=== PATIENT | female | born 1990 | race Caucasian/White ===

== ENCOUNTER 2019-11-05 06:13 | Inpatient (IN) | payer BC ==
[2019-11-05] MEDS ORDERED: Sodium Chloride 0.9% 2.5 ML Syringe FLUSH PRN (06:19)
[2019-11-05] MEDS ORDERED: Sodium Chloride 0.9% 10 ML SDV IV PRN (06:19)
[2019-11-05] MEDS ORDERED: Sodium Chloride 0.9% 10 ML Syringe FLUSH PRN (06:19)
[2019-11-05] MEDS ORDERED: Citric Acid/Sodium Citrate Solution 30 ML Cup PO ONE (06:19)
[2019-11-05] MEDS ORDERED: Oxytocin/0.9 % Sodium Chloride 30 UNIT/500 ML BAG IV SCH ×2 (06:30→06:45)
[2019-11-05] MEDS ORDERED: Tranexamic Acid 1,000 MG in Sodium Chloride 0.9% 100 ML IV PRN ×2 (06:34→09:32)
[2019-11-05] MEDS ORDERED: Butorphanol 1 MG/ML SDV IVPUSH PRN (06:34)
[2019-11-05] MEDS ORDERED: Lidocaine 1% 50 ML MDV INJECT PRN (06:34)
[2019-11-05] MEDS ORDERED: Carboprost Tromethamine 250 MCG/1 ML Amp IM PRN (06:34)
[2019-11-05] MEDS ORDERED: Water For Irrigation,Sterile 1,000 ML Container IRR PRN (06:34)
[2019-11-05] MEDS ORDERED: Methylergonovine 0.2 MG/1 ML Amp IM PRN ×2 (06:34→09:32)
[2019-11-05] MEDS ORDERED: Misoprostol 200 MCG Tab PO PRN (06:34)
[2019-11-05] MEDS ORDERED: Nalbuphine 10 MG/1 ML Vial IVPUSH PRN ×2 (06:34→09:16)
[2019-11-05] MEDS ORDERED: Ondansetron 4 MG/2 ML SDV IVPUSH PRN ×2 (06:34→09:32)
[2019-11-05] MEDS: Lactated Ringers 1,000 ML IV SCH ×3 (06:42→08:36)
[2019-11-05] MEDS ORDERED: Morphine PF 10 MG/10 ML SDV ONE (07:56)
[2019-11-05] MEDS ORDERED: ceFAZolin 1 GM Vial ONE (07:56)
[2019-11-05] MEDS ORDERED: ePHEDrine 50 MG/ML SDV ONE (07:56)
[2019-11-05] MEDS ORDERED: Ondansetron 4 MG/2 ML SDV ONE (07:56)
[2019-11-05] MEDS ORDERED: Oxytocin 10 Units/1 ML SDV ONE (07:56)
[2019-11-05] MEDS ORDERED: Sodium Chloride 0.9% 20 ML ONE ×2 (07:56→07:57)
[2019-11-05] MEDS ORDERED: ceFAZolin 1 GM in Premix Bag 1 BAG IV ONE (08:13)
--- NOTE | 2019-11-05 08:18 | PCM.PREANE ---
Preanesthetic Assessment - Anesthesia/Transfusion/Family Hx Anesthesia History: Prior Anesthesia Without Reaction Family History of Anesthesia Reaction: No Transfusion History: Prior Transfusion Without Reaction - Review of Systems General: No Symptoms Pulmonary: No Symptoms Cardiovascular: No Symptoms Gastrointestinal: No Symptoms Neurological: No Symptoms Other: Reports: None - Physical Assessment Height: 5 ft 1 in Weight: 58.967 kg ASA Class: 2 Mental Status: Alert & Oriented x3 Airway Class: Mallampati = 2 Dentition: Reports: Normal Dentition Thyro-Mental Finger Breadths: 3 Mouth Opening Finger Breadths: 3 ROM/Head Extension: Full Lungs: Clear to Auscultation, Normal Respiratory Effort Cardiovascular: Regular Rate, Regular Rhythm - Lab Values: Laboratory Last Values WBC 9.26 K/uL (4.0-11.0) 11/05/19 06:50 RBC 3.99 M/uL (4.30-5.90) L 11/05/19 06:50 Hgb 11.2 g/dL (12.0-16.0) L 11/05/19 06:50 Hct 35.2 % (36.0-46.0) L 11/05/19 06:50 MCV 88.2 fL (80.0-98.0) 11/05/19 06:50 MCH 28.1 pg (27.0-32.0) 11/05/19 06:50 MCHC 31.8 g/dL (31.0-37.0) 11/05/19 06:50 Plt Count 159 K/uL (150-400) 11/05/19 06:50 Nucleated RBC % 0.0 /100WBC 11/05/19 06:50 Nucleated RBCs # 0 K/uL 11/05/19 06:50 Blood Type O POSITIVE 11/05/19 06:50 Antibody Screen NEGATIVE 11/05/19 06:50 - Allergies Allergies/Adverse Reactions: Allergies Allergy/AdvReac Type Severity Reaction Status Date / Time Dairy Products Allergy Hives Verified 10/31/19 10:21 - Acknowledgements Anesthesia Type Planned: General Anesthesia, Spinal (Duramorph) Pt an Appropriate Candidate for the Planned Anesthesia: Yes Alternatives and Risks of Anesthesia Discussed w Pt/Guardian: Yes Pt/Guardian Understands and Agrees with Anesthesia Plan: Yes PreAnesthesia Questionnaire - Past Health History Medical/Surgical History: Denies Medical/Surgical History HEENT History: Reports: Other (See Below) Other HEENT History: wears glasses, has top dental flipper Cardiovascular History: Reports: None Respiratory History: Reports: None Gastrointestinal History: Reports: None Genitourinary History: Reports: None RECYCLE DRIVER History: Reports: , Spontaneous : 3 Para: 1 LMP (Approximate): Musculoskeletal History: Reports: None Neurological History: Reports: Migraines Psychiatric History: Reports: None Endocrine/Metabolic History: Reports: Diabetes, Gestational, Other (See Below) Other Endocrine/Metabolic History: hx of gdm with previous Hematologic History: Reports: Anemia, B12 Deficiency, Blood Transfusion(s), Iron Deficiency, Other (See Below) Other Hematologic History: iron transfusion Immunologic History: Reports: None Oncologic (Cancer) History: Reports: None Dermatologic History: Reports: None - Infectious Disease History Infectious Disease History: Reports: None - Past Surgical History HEENT Surgical History: Reports: None Female Surgical History: Reports: Section Endocrine Surgical History: Reports: None Neurological Surgical History: Reports: None - SUBSTANCE USE Smoking Status *Q: Former Smoker Tobacco Use Within Last Twelve Months: No - HOME MEDS Home Medications: Home Meds Cyclobenzaprine HCl 1 tab PO ASDIRECTED PRN 10/31/19 [History] Pnv No.95/Ferrous Fum/Folic AC [ Vitamin Tablet] 1 tab PO DAILY [History] Cyanocobalamin (Vitamin B12) [Vitamin B12] 1,000 mcg PO WEEKLY 11/05/19 [History ] hydrOXYzine pamoate [Hydroxyzine Pamoate] 1 tab PO DAILY 11/05/19 [History] - CURRENT (IN HOUSE) MEDS Current Meds: Current Medications Butorphanol Tartrate (Stadol) 1 mg IVPUSH Q1H PRN PRN Reason: Pain Carboprost Tromethamine (Hemabate Ds) 250 mcg IM ASDIRECTED PRN PRN Reason: Post Hemorrhage Lactated Ringer's (Ringers, Lactated) 1,000 mls @ 500 mls/hr IV BOLUS [facility] Last Admin: 11/05/19 07:27 Dose: 999 mls/hr Oxytocin/Sodium Chloride (Oxytocin 30 Unit/500 Ml-Ns) 30 unit in 500 mls @ 250 mls/hr IV TITRATE LUCIANA Oxytocin/Sodium Chloride (Oxytocin 30 Unit/500 Ml-Ns) 30 unit in 500 mls @ 999 mls/hr IV TITRATE LUCIANA Tranexamic Acid 1,000 mg/ (Sodium Chloride) 110 mls @ 660 mls/hr IV ONETIME PRN PRN Reason: Bleeding Cefazolin Sodium/Dextrose 1 gm (/ Premix) 50 mls @ 100 mls/hr IV ONETIME ONE Stop: 11/05/19 08:42 Lidocaine HCl (Xylocaine 1%) 50 ml INJECT ONETIME PRN PRN Reason: Laceration repair Methylergonovine Maleate (Methergine) 0.2 mg IM ASDIRECTED PRN PRN Reason: Post Hemorrhage Misoprostol (Cytotec) 200 mcg PO ONETIME PRN PRN Reason: Post Hemorrhage Nalbuphine HCl (Nubain) 10 mg IVPUSH Q1H PRN PRN Reason: Pain (severe 7-10) Ondansetron HCl (Zofran) 4 mg IVPUSH Q4H PRN PRN Reason: Nausea/Vomiting Sodium Chloride (Saline Flush) 10 ml FLUSH ASDIRECTED PRN PRN Reason: Keep Vein Open Sodium Chloride (Saline Flush) 2.5 ml FLUSH ASDIRECTED PRN PRN Reason: Keep Vein Open Sodium Chloride (Normal Saline) 10 ml IV ASDIRECTED PRN PRN Reason: IV Use Sterile Water (Sterile Water For Irrigation) 1,000 ml IRR ASDIRECTED PRN PRN Reason: delivery Discontinued Medications Cefazolin Sodium (Ancef) Confirm Administered Dose 2 gm .ROUTE .STK-MED ONE Stop: 11/05/19 07:57 Citric Acid/Sodium Citrate (Bicitra Solution) 30 ml PO ONETIME ONE Stop: 11/05/19 06:20 Ephedrine Sulfate (Ephedrine Sulfate) Confirm Administered Dose 50 mg .ROUTE .STK-MED ONE Stop: 11/05/19 07:57 Sodium Chloride (Normal Saline) Confirm Administered Dose 20 mls @ as directed .ROUTE .STK-MED ONE Stop: 11/05/19 07:57 Sodium Chloride (Normal Saline) Confirm Administered Dose 20 mls @ as directed .ROUTE .STK-MED ONE Stop: 11/05/19 07:58 Morphine Sulfate (Duramorph Pf) Confirm Administered Dose 10 mg .ROUTE .STK-MED ONE Stop: 11/05/19 07:57 Ondansetron HCl (Zofran) Confirm Administered Dose 4 mg .ROUTE .STK-MED ONE Stop: 11/05/19 07:57 Oxytocin (Pitocin) Confirm Administered Dose 30 unit .ROUTE .STK-MED ONE Stop: 11/05/19 07:57
[2019-11-05] MEDS ORDERED: Citric Acid/Sodium Citrate Solution 30 ML Cup ONE (08:33)
[2019-11-05] MEDS ORDERED: Phenylephrine/Normal Saline 100 MCG/ML 10 ML Syringe ONE (08:50)
[2019-11-05] MEDS ORDERED: Naloxone 0.4 MG/ML Syringe IVPUSH PRN (09:16)
[2019-11-05] MEDS ORDERED: diphenhydrAMINE 50 MG/ML SDV IVPUSH PRN ×2 (09:16→09:32)
[2019-11-05] MEDS ORDERED: Octyl 2-Cyanoacrylate 1 Tube ONE (09:19)
--- NOTE | 2019-11-05 09:30 | PCM.OPNOTE ---
- General Post-Op/Procedure Note Date of Surgery/Procedure: 11/05/19 Operative Procedure(s): repeat low transverse . Findings: Liveborn female, 08/06 weight 3190 grams. Normal pelvis Pre Op Diagnosis: 39 weeks, previous anemia. Post-Op Diagnosis: Same Anesthesia Technique: Spinal Primary Surgeon: Tootie Ashton Anesthesia Provider: Sharad Mccabe Pathology: none Fluid Replacement, Intraop: 500 EBL in mLs: 500 Complications: None Known Condition: Good
[2019-11-05] MEDS ORDERED: Bisacodyl 10 MG Supp RECTAL PRN (09:32)
[2019-11-05] MEDS ORDERED: Misoprostol 200 MCG Tab RECTAL PRN (09:32)
[2019-11-05] MEDS ORDERED: Ibuprofen 800 MG Tab PO PRN (09:32)
[2019-11-05] MEDS ORDERED: Oxytocin 10 Units/1 ML SDV IM PRN (09:32)
[2019-11-05] MEDS ORDERED: Lanolin 100% Cream 7 GM Tube TOP PRN (09:32)
[2019-11-05] MEDS ORDERED: Acetaminophen/oxyCODONE 325-5 MG Tab PO PRN (09:32)
[2019-11-05] MEDS ORDERED: Lactated Ringers 1,000 ML IV SCH (09:45)
[2019-11-05] MEDS: Ketorolac 30 MG/ML SDV IVPUSH SCH ×3 (09:56→21:49)
--- NOTE | 2019-11-05 10:16 | PCM.POSTAN ---
POST ANESTHESIA ASSESSMENT - MENTAL STATUS Mental Status: Alert - VITAL SIGNS Vital Signs: Last Vital Signs Temp 36.8 C 11/05/19 09:33 Pulse 78 11/05/19 10:03 Resp 11 L 11/05/19 10:03 BP 116/64 11/05/19 10:03 Pulse Ox 99 11/05/19 10:03 - RESPIRATORY Respiratory Status: Respiratory Rate WNL - CARDIOVASCULAR CV Status: Pulse Rate WNL - GASTROINTESTINAL GI Status: No Symptoms - POST OP HYDRATION Hydration Status: Adequate & Stable
--- NOTE | 2019-11-05 16:00 | OR ---
SURGEON: Tootie Ashton M.D. DATE OF PROCEDURE: 11/05/2019 PREOPERATIVE DIAGNOSES: A 39-week intrauterine , prior delivery, desires repeat. POSTOPERATIVE DIAGNOSES: A 39-week intrauterine , prior delivery, desires repeat. PROCEDURE: Repeat low-transverse section. PRIMARY SURGEON: Tootie Ashton M.D. ANESTHESIA: Spinal. ESTIMATED BLOOD LOSS: 500 mL. FLUIDS: 500 mL of crystalloid. FINDINGS: Liveborn female, score 9 and 9, weighing 3190 g. Normal-appearing uterus, tubes, and ovaries. COMPLICATIONS: None known. DISPOSITION: Stable to recovery. BRIEF HISTORY: This is a 28-year-old female, G2, P1. She presents at 39 weeks' gestation for a repeat section. Her has been complicated by severe iron deficiency anemia. She has received iron infusions. Her hemoglobin was running in the range of 8 and now is 11.2. She has been offered and declined vaginal trial of labor and she desires a repeat delivery with risks discussed including bleeding; infection; injury to bowel, bladder, blood vessels, or other organs; risk of thromboembolic event; and risk of anesthesia. Understanding all these risks, she does desire to proceed. DESCRIPTION OF PROCEDURE: With the patient in left tilt position and under adequate spinal analgesia, the abdomen was prepped with chlorhexidine and draped in the usual fashion for abdominal surgery. SCDs were in place. Lambert catheter had been placed. She received a gram of Ancef IV and an appropriate time-out was held. The abdomen was appropriately prepped and draped and the testing was performed to confirm adequate analgesia. The prior cicatrix was excised and a transverse curvilinear incision was made through the subcutaneous tissue. The fascia was scored transversely in the midline. The fascial incision was extended laterally using curved Pollard scissors. The fascia was elevated from the underlying rectus muscle using sharp and blunt dissection. The rectus muscles were bluntly in the midline. A finger was used to enter the peritoneal cavity. This incision was extended using sharp and blunt dissection. The Tahir O retractor was placed. The visceroperitoneum over the lower uterine segment was incised to develop an adequate bladder flap. A transverse curvilinear incision was made over the lower uterine segment using a scalpel. The incision was extended with blunt dissection. With fundal pressure, the head was delivered via the uterine incision. Amniotic membranes were then ruptured. Clear fluid was noted. The double nuchal cord was reduced. The remainder of the fetus body was delivered without any difficulty. The was a liveborn female, score 9 and 9, weight is 3190 g. After the cord had ceased to pulsate, it was doubly clamped and cut and the was handed to the nurse in attendance at delivery. Cord blood was collected for cord ABGs as well as routine cord blood sampling. Pitocin was initiated after delivery of the infant to assist with delivery of the placenta, which was delivered . The uterus was cleaned with dry laparotomy tape. The cervix was opened with ring forceps. The uterine incision was closed with a running lock suture of 0 Polysorb. The posterior cul-de-sac and pericolic gutters were cleaned with a laparotomy tape. Tubes and ovaries were inspected and were normal. The uterine incision was inspected and was hemostatic after it had been closed with a running lock suture of 0 Polysorb followed by an imbricating layer of 0 Polysorb and an additional [id number] suture in the midline. The Tahir 0 retractor was then removed. The uterine incision was again inspected and was hemostatic. The rectus muscle and peritoneum were loosely approximated in the midline using a running mattress suture of 0 Polysorb. The posterior aspect of the fascia was inspected and was hemostatic. The fascial incision was closed with a running suture of 0 Polysorb. Subcutaneous tissue was irrigated. Any areas of bleeding that were noted were cauterized. The skin was closed with a running subcuticular suture of 3-0 Monocryl followed by Dermabond. Final sponge, needle, and instrument counts were reported as correct. There were no noted complications. Mother and baby are in recovery in good condition. MARLEE / ZAID /[id number] ZANE
[2019-11-05] MEDS: Docusate Sodium 100 MG Cap PO SCH (21:49)
[2019-11-06] MEDS: Ketorolac 30 MG/ML SDV IVPUSH SCH ×2 (03:49→09:37)
--- NOTE | 2019-11-06 08:01 | PCM48HPAN ---
Post Anesthesia Note - EVALUATION WITHIN 48HRS OF ANESTHETIC Vital Signs in Normal Range: Yes Patient Participated in Evaluation: Yes Respiratory Function Stable: Yes Airway Patent: Yes Cardiovascular Function Stable: Yes Hydration Status Stable: Yes Pain Control Satisfactory: Yes Nausea and Vomiting Control Satisfactory: Yes Mental Status Recovered: Yes Vital Signs: Last Vital Signs Temp 98.6 F 11/06/19 03:47 Pulse 89 11/06/19 07:00 Resp 14 11/06/19 07:00 BP 112/58 L 11/06/19 07:00 Pulse Ox 91 L 11/06/19 07:00
--- NOTE | 2019-11-06 08:39 | PCM.PNPP ---
- General Info Date of Service: 11/06/19 Functional Status: Reports: Pain Controlled, Tolerating Diet, Ambulating, Urinating - Review of Systems General: Reports: No Symptoms HEENT: Reports: No Symptoms Pulmonary: Reports: No Symptoms Cardiovascular: Reports: No Symptoms Gastrointestinal: Reports: No Symptoms Genitourinary: Reports: No Symptoms Musculoskeletal: Reports: No Symptoms Skin: Reports: No Symptoms Neurological: Reports: No Symptoms Psychiatric: Reports: No Symptoms - Patient Data Vital Signs - Most Recent: Last Vital Signs Temp 37.0 C 11/06/19 03:47 Pulse 120 H 11/06/19 08:00 Resp 18 11/06/19 08:00 BP 112/58 L 11/06/19 07:00 Pulse Ox 93 L 11/06/19 08:00 Weight - Most Recent: 58.967 kg I&O - Last 24 Hours: Intake & Output 11/05/19 11/06/19 11/06/19 22:59 06:59 14:59 Intake Total 640 Output Total 510 2250 700 Balance 130 -2250 -700 Lab Results - Last 24 Hours: Laboratory Results - last 24 hr 11/05/19 11/06/19 Range/Units 09:01 06:15 Hgb 10.1 L (12.0-16.0) g/dL Hct 31.3 L (36.0-46.0) % Cord ABG pH 7.283 (7.18-7.38) Cord ABG Base Excess -3 (-10--2) Cord VBG pH 7.340 (7.25-7.45) Cord VBG Base Excess -3 (-10--2) Med Orders - Current: Current Medications Bisacodyl (Dulcolax) 10 mg RECTAL ONETIME PRN PRN Reason: Constipation Diphenhydramine HCl (Benadryl) 25 mg IVPUSH Q4H PRN PRN Reason: Itching Stop: 11/06/19 09:17 Diphenhydramine HCl (Benadryl) 25 mg IVPUSH Q6H PRN PRN Reason: Itching or Nausea Docusate Sodium (Colace) 100 mg PO BID LUCIANA Last Admin: 11/05/19 21:49 Dose: 100 mg Emollient Ointment (Lansinoh Hpa) 0 gm TOP ASDIRECTED PRN PRN Reason: Sore Nipples Lactated Ringer's (Ringers, Lactated) 1,000 mls @ 125 mls/hr IV ASDIRECTED [facility] Last Admin: 11/05/19 11:17 Dose: 125 mls/hr Tranexamic Acid 1,000 mg/ (Sodium Chloride) 110 mls @ 660 mls/hr IV ONETIME PRN PRN Reason: Bleeding Ibuprofen (Motrin) 800 mg PO Q8H PRN PRN Reason: mild pain or fever Ketorolac Tromethamine (Toradol) 30 mg IVPUSH Q6H [facility] Stop: 11/06/19 09:46 Last Admin: 11/06/19 03:49 Dose: 30 mg Methylergonovine Maleate (Methergine) 0.2 mg IM ONETIME PRN PRN Reason: Excessive Vaginal Bleeding Misoprostol (Cytotec) 1,000 mcg RECTAL ONETIME PRN PRN Reason: excessive bleeding Nalbuphine HCl (Nubain) 5 mg IVPUSH Q3H PRN PRN Reason: Pruritis Stop: 11/06/19 09:17 Naloxone HCl (Narcan) 0.1 mg IVPUSH ONETIME PRN PRN Reason: Respiratory Depression Stop: 11/06/19 09:17 Ondansetron HCl (Zofran) 4 mg IVPUSH Q4H PRN PRN Reason: Nausea/Vomiting Oxycodone/Acetaminophen (Percocet 325-5 Mg) 1 tab PO Q4H PRN PRN Reason: Pain (moderate 4-6) Oxycodone/Acetaminophen (Percocet 325-5 Mg) 2 tab PO Q4H PRN PRN Reason: Pain (moderate 4-6) Oxytocin (Pitocin) 10 unit IM ASDIRECTED PRN PRN Reason: Excessive Vaginal Bleeding Discontinued Medications Butorphanol Tartrate (Stadol) 1 mg IVPUSH Q1H PRN PRN Reason: Pain Carboprost Tromethamine (Hemabate Ds) 250 mcg IM ASDIRECTED PRN PRN Reason: Post Hemorrhage Cefazolin Sodium (Ancef) Confirm Administered Dose 2 gm .ROUTE .STK-MED ONE Stop: 11/05/19 07:57 Citric Acid/Sodium Citrate (Bicitra Solution) 30 ml PO ONETIME ONE Stop: 11/05/19 06:20 Last Admin: 11/05/19 08:35 Dose: 30 ml Citric Acid/Sodium Citrate (Bicitra Solution) Confirm Administered Dose 30 ml .ROUTE .STK-MED ONE Stop: 11/05/19 08:34 Last Admin: 11/05/19 19:42 Dose: Not Given Ephedrine Sulfate (Ephedrine Sulfate) Confirm Administered Dose 50 mg .ROUTE .STK-MED ONE Stop: 11/05/19 07:57 Lactated Ringer's (Ringers, Lactated) 1,000 mls @ 500 mls/hr IV BOLUS LUCIANA Last Admin: 11/05/19 08:36 Dose: 999 mls/hr Oxytocin/Sodium Chloride (Oxytocin 30 Unit/500 Ml-Ns) 30 unit in 500 mls @ 250 mls/hr IV TITRATE LUCIANA Oxytocin/Sodium Chloride (Oxytocin 30 Unit/500 Ml-Ns) 30 unit in 500 mls @ 999 mls/hr IV TITRATE LUCIANA Tranexamic Acid 1,000 mg/ (Sodium Chloride) 110 mls @ 660 mls/hr IV ONETIME PRN PRN Reason: Bleeding Sodium Chloride (Normal Saline) Confirm Administered Dose 20 mls @ as directed .ROUTE .STK-MED ONE Stop: 11/05/19 07:57 Sodium Chloride (Normal Saline) Confirm Administered Dose 20 mls @ as directed .ROUTE .STK-MED ONE Stop: 11/05/19 07:58 Cefazolin Sodium/Dextrose 1 gm (/ Premix) 50 mls @ 100 mls/hr IV ONETIME ONE Stop: 11/05/19 08:42 Last Admin: 11/05/19 19:42 Dose: Not Given Lidocaine HCl (Xylocaine 1%) 50 ml INJECT ONETIME PRN PRN Reason: Laceration repair Methylergonovine Maleate (Methergine) 0.2 mg IM ASDIRECTED PRN PRN Reason: Post Hemorrhage Misoprostol (Cytotec) 200 mcg PO ONETIME PRN PRN Reason: Post Hemorrhage Morphine Sulfate (Duramorph Pf) Confirm Administered Dose 10 mg .ROUTE .STK-MED ONE Stop: 11/05/19 07:57 Nalbuphine HCl (Nubain) 10 mg IVPUSH Q1H PRN PRN Reason: Pain (severe 7-10) Octyl Cyanoacrylate (Dermabond Advance) Confirm Administered Dose 1 applic .ROUTE .STK-MED ONE Stop: 11/05/19 09:20 Last Admin: 11/05/19 19:42 Dose: Not Given Ondansetron HCl (Zofran) 4 mg IVPUSH Q4H PRN PRN Reason: Nausea/Vomiting Ondansetron HCl (Zofran) Confirm Administered Dose 4 mg .ROUTE .STK-MED ONE Stop: 11/05/19 07:57 Oxytocin (Pitocin) Confirm Administered Dose 30 unit .ROUTE .STK-MED ONE Stop: 11/05/19 07:57 Phenylephrine HCl (Phenylephrine In Ns 100 Mcg/Ml) Confirm Administered Dose 1 mg .ROUTE .STK-MED ONE Stop: 11/05/19 08:51 Sodium Chloride (Saline Flush) 10 ml FLUSH ASDIRECTED PRN PRN Reason: Keep Vein Open Sodium Chloride (Saline Flush) 2.5 ml FLUSH ASDIRECTED PRN PRN Reason: Keep Vein Open Sodium Chloride (Normal Saline) 10 ml IV ASDIRECTED PRN PRN Reason: IV Use Sterile Water (Sterile Water For Irrigation) 1,000 ml IRR ASDIRECTED PRN PRN Reason: delivery - Infant Interaction Infant Disposition, : in Room with Family Infant Interaction: Holding Infant Infant Feeding: Bottle Fed Support Person: Significant Other - Recovery Exam Fundal Tone: Firm Fundal Level: 1 Fingerbreadths Below Umbilicus Fundal Placement: Left Lochia Amount: Scant Lochia Color: Rubra/Red Perineum Description: Intact, Minimal Bruising/Swelling Episiotomy/Laceration: None Bladder Status: Indwelling Catheter in Place Urinary Elimination: Indwelling Catheter - Exam General: Alert, Oriented HEENT: Pupils Equal Neck: Supple Lungs: Clear to Auscultation, Normal Respiratory Effort Cardiovascular: Regular Rate, Regular Rhythm GI/Abdominal Exam: Normal Bowel Sounds, Non-Tender, No Distention Extremities: Normal Inspection, Non-Tender, No Pedal Edema Skin: Warm, Dry, Intact Wound/Incisions: Healing Well Neurological: No New Focal Deficit Psy/Mental Status: Alert, Normal Affect, Normal Mood - Problem List & Annotations (1) delivery delivered SNOMED Code(s): 958975300 Code(s): O82 - ENCOUNTER FOR DELIVERY WITHOUT INDICATION Status: Acute Current Visit: No - Problem List Review Problem List Initiated/Reviewed/Updated: Yes - My Orders Last 24 Hours: My Active Orders 11/05/19 09:32 Patient Status [ADT] Routine Ambulate [RC] PER UNIT ROUTINE Antiembolic Devices [RC] PER UNIT ROUTINE Communication Order [RC] PER UNIT ROUTINE Communication Order [RC] PER UNIT ROUTINE Communication Order [RC] Per Unit Routine May Shower [RC] ASDIRECTED RT Incentive Spirometry [RC] Q2HWA Vital Signs [RC] PER UNIT ROUTINE Acetaminophen/oxyCODONE [Percocet 325-5 MG] 1 tab PO Q4H PRN Acetaminophen/oxyCODONE [Percocet 325-5 MG] 2 tab PO Q4H PRN Bisacodyl [Dulcolax] 10 mg RECTAL ONETIME PRN Ibuprofen [Motrin] 800 mg PO Q8H PRN Lanolin [Lansinoh HPA] See Dose Instructions TOP ASDIRECTED PRN Methylergonovine [Methergine] 0.2 mg IM ONETIME PRN Ondansetron [Zofran] 4 mg IVPUSH Q4H PRN Oxytocin [Pitocin] 10 unit IM ASDIRECTED PRN Tranexamic Acid [Cyklokapron] 1,000 mg Sodium Chloride 0.9% [Normal Saline] 100 ml IV ONETIME diphenhydrAMINE [Benadryl] 25 mg IVPUSH Q6H PRN miSOPROStoL [Cytotec] 1,000 mcg RECTAL ONETIME PRN Abdominal Binder [OM.PC] Urgent Assess Lochia [WOMSER] Per Unit Routine Assess Uterine Involution [WOMSER] Per Unit Routine Breast Pump [WOMSER] Per Unit Routine Peripheral IV Discontinue [OM.PC] Routine Sequential Compression Device [OM.PC] Per Unit Routine Resuscitation Status Routine 11/05/19 09:33 Intake and Output [RC] Q12H Notify Provider Intake and Out [RC] ASDIRECTED Notify Provider Vital Signs [RC] ASDIRECTED 11/05/19 09:45 Ketorolac [Toradol] 30 mg IVPUSH Q6H Lactated Ringers [Ringers, Lactated] 1,000 ml IV ASDIRECTED 11/05/19 21:00 Docusate Sodium [Colace] 100 mg PO BID 11/05/19 Lunch Regular Diet [DIET] - Assessment Assessment:: POD#1 after repeat low transverse . Stable minimal lochia, tolerating diet. Discussed single episode of tachycardia, she denies any symptoms, will continue to monitor vitals. - Plan Plan:: continue postop care, ambulate, may shower,
[2019-11-06] MEDS: Docusate Sodium 100 MG Cap PO SCH ×2 (09:37→21:04)
[2019-11-06] MEDS: Acetaminophen/oxyCODONE 325-5 MG Tab PO PRN (17:48)
--- NOTE | 2019-11-07 08:32 | PCM.PNPP ---
- General Info Date of Service: 11/07/19 Functional Status: Reports: Pain Controlled, Tolerating Diet, Ambulating, Urinating - Review of Systems General: Reports: No Symptoms HEENT: Reports: No Symptoms Pulmonary: Reports: No Symptoms Cardiovascular: Reports: No Symptoms Gastrointestinal: Reports: No Symptoms Genitourinary: Reports: No Symptoms Musculoskeletal: Reports: No Symptoms Skin: Reports: No Symptoms Neurological: Reports: No Symptoms Psychiatric: Reports: No Symptoms - Patient Data Vital Signs - Most Recent: Last Vital Signs Temp 36.8 C 11/07/19 04:00 Pulse 74 11/07/19 04:00 Resp 14 11/07/19 04:00 BP 110/74 11/07/19 04:00 Pulse Ox 94 L 11/07/19 04:00 Weight - Most Recent: 58.967 kg Lab Results - Last 24 Hours: Laboratory Results - last 24 hr 11/05/19 Range/Units 06:50 RPR Non Reactive (NonRea<1:1) Med Orders - Current: Current Medications Bisacodyl (Dulcolax) 10 mg RECTAL ONETIME PRN PRN Reason: Constipation Diphenhydramine HCl (Benadryl) 25 mg IVPUSH Q6H PRN PRN Reason: Itching or Nausea Docusate Sodium (Colace) 100 mg PO BID [facility] Last Admin: 11/06/19 21:04 Dose: 100 mg Emollient Ointment (Lansinoh Hpa) 0 gm TOP ASDIRECTED PRN PRN Reason: Sore Nipples Lactated Ringer's (Ringers, Lactated) 1,000 mls @ 125 mls/hr IV ASDIRECTED [facility] Last Admin: 11/05/19 11:17 Dose: 125 mls/hr Tranexamic Acid 1,000 mg/ (Sodium Chloride) 110 mls @ 660 mls/hr IV ONETIME PRN PRN Reason: Bleeding Ibuprofen (Motrin) 800 mg PO Q8H PRN PRN Reason: mild pain or fever Last Admin: 11/06/19 16:22 Dose: 800 mg Methylergonovine Maleate (Methergine) 0.2 mg IM ONETIME PRN PRN Reason: Excessive Vaginal Bleeding Misoprostol (Cytotec) 1,000 mcg RECTAL ONETIME PRN PRN Reason: excessive bleeding Ondansetron HCl (Zofran) 4 mg IVPUSH Q4H PRN PRN Reason: Nausea/Vomiting Oxycodone/Acetaminophen (Percocet 325-5 Mg) 1 tab PO Q4H PRN PRN Reason: Pain (moderate 4-6) Last Admin: 11/06/19 17:48 Dose: 1 tab Oxycodone/Acetaminophen (Percocet 325-5 Mg) 2 tab PO Q4H PRN PRN Reason: Pain (moderate 4-6) Oxytocin (Pitocin) 10 unit IM ASDIRECTED PRN PRN Reason: Excessive Vaginal Bleeding Discontinued Medications Butorphanol Tartrate (Stadol) 1 mg IVPUSH Q1H PRN PRN Reason: Pain Carboprost Tromethamine (Hemabate Ds) 250 mcg IM ASDIRECTED PRN PRN Reason: Post Hemorrhage Cefazolin Sodium (Ancef) Confirm Administered Dose 2 gm .ROUTE .STK-MED ONE Stop: 11/05/19 07:57 Citric Acid/Sodium Citrate (Bicitra Solution) 30 ml PO ONETIME ONE Stop: 11/05/19 06:20 Last Admin: 11/05/19 08:35 Dose: 30 ml Citric Acid/Sodium Citrate (Bicitra Solution) Confirm Administered Dose 30 ml .ROUTE .STK-MED ONE Stop: 11/05/19 08:34 Last Admin: 11/05/19 19:42 Dose: Not Given Diphenhydramine HCl (Benadryl) 25 mg IVPUSH Q4H PRN PRN Reason: Itching Stop: 11/06/19 09:17 Ephedrine Sulfate (Ephedrine Sulfate) Confirm Administered Dose 50 mg .ROUTE .STK-MED ONE Stop: 11/05/19 07:57 Lactated Ringer's (Ringers, Lactated) 1,000 mls @ 500 mls/hr IV BOLUS LUCIANA Last Admin: 11/05/19 08:36 Dose: 999 mls/hr Oxytocin/Sodium Chloride (Oxytocin 30 Unit/500 Ml-Ns) 30 unit in 500 mls @ 250 mls/hr IV TITRATE LUCIANA Oxytocin/Sodium Chloride (Oxytocin 30 Unit/500 Ml-Ns) 30 unit in 500 mls @ 999 mls/hr IV TITRATE LUCIANA Tranexamic Acid 1,000 mg/ (Sodium Chloride) 110 mls @ 660 mls/hr IV ONETIME PRN PRN Reason: Bleeding Sodium Chloride (Normal Saline) Confirm Administered Dose 20 mls @ as directed .ROUTE .STK-MED ONE Stop: 11/05/19 07:57 Sodium Chloride (Normal Saline) Confirm Administered Dose 20 mls @ as directed .ROUTE .STK-MED ONE Stop: 11/05/19 07:58 Cefazolin Sodium/Dextrose 1 gm (/ Premix) 50 mls @ 100 mls/hr IV ONETIME ONE Stop: 11/05/19 08:42 Last Admin: 11/05/19 19:42 Dose: Not Given Ketorolac Tromethamine (Toradol) 30 mg IVPUSH Q6H [place]UC[place] Stop: 11/06/19 09:46 Last Admin: 11/06/19 09:37 Dose: 30 mg Lidocaine HCl (Xylocaine 1%) 50 ml INJECT ONETIME PRN PRN Reason: Laceration repair Methylergonovine Maleate (Methergine) 0.2 mg IM ASDIRECTED PRN PRN Reason: Post Hemorrhage Misoprostol (Cytotec) 200 mcg PO ONETIME PRN PRN Reason: Post Hemorrhage Morphine Sulfate (Duramorph Pf) Confirm Administered Dose 10 mg .ROUTE .STK-MED ONE Stop: 11/05/19 07:57 Nalbuphine HCl (Nubain) 10 mg IVPUSH Q1H PRN PRN Reason: Pain (severe 7-10) Nalbuphine HCl (Nubain) 5 mg IVPUSH Q3H PRN PRN Reason: Pruritis Stop: 11/06/19 09:17 Naloxone HCl (Narcan) 0.1 mg IVPUSH ONETIME PRN PRN Reason: Respiratory Depression Stop: 11/06/19 09:17 Octyl Cyanoacrylate (Dermabond Advance) Confirm Administered Dose 1 applic .ROUTE .STK-MED ONE Stop: 11/05/19 09:20 Last Admin: 11/05/19 19:42 Dose: Not Given Ondansetron HCl (Zofran) 4 mg IVPUSH Q4H PRN PRN Reason: Nausea/Vomiting Ondansetron HCl (Zofran) Confirm Administered Dose 4 mg .ROUTE .STK-MED ONE Stop: 11/05/19 07:57 Oxytocin (Pitocin) Confirm Administered Dose 30 unit .ROUTE .STK-MED ONE Stop: 11/05/19 07:57 Phenylephrine HCl (Phenylephrine In Ns 100 Mcg/Ml) Confirm Administered Dose 1 mg .ROUTE .Reeher ONE Stop: 11/05/19 08:51 Sodium Chloride (Saline Flush) 10 ml FLUSH ASDIRECTED PRN PRN Reason: Keep Vein Open Sodium Chloride (Saline Flush) 2.5 ml FLUSH ASDIRECTED PRN PRN Reason: Keep Vein Open Sodium Chloride (Normal Saline) 10 ml IV ASDIRECTED PRN PRN Reason: IV Use Sterile Water (Sterile Water For Irrigation) 1,000 ml IRR ASDIRECTED PRN PRN Reason: delivery - Interaction Infant Disposition, : in Room with Family Infant Interaction: Holding Infant Feeding: Bottle Fed Infant Support Person: Significant Other - Recovery Exam Fundal Tone: Firm Fundal Level: 1 Fingerbreadths Below Umbilicus Fundal Placement: Midline Lochia Amount: Scant Lochia Color: Rubra/Red Perineum Description: Intact, Minimal Bruising/Swelling Episiotomy/Laceration: None Bladder Status: Voiding Urinary Elimination: Indwelling Catheter - Exam General: Alert, Oriented HEENT: Pupils Equal Neck: Supple Lungs: Normal Respiratory Effort GI/Abdominal Exam: Soft, Non-Tender Extremities: Normal Inspection, Non-Tender, No Pedal Edema Skin: Warm, Dry, Intact Wound/Incisions: Healing Well Neurological: No New Focal Deficit Psy/Mental Status: Alert, Normal Affect, Normal Mood - Problem List & Annotations (1) delivery delivered SNOMED Code(s): 168955530 Code(s): O82 - ENCOUNTER FOR DELIVERY WITHOUT INDICATION Status: Acute Current Visit: No - Problem List Review Problem List Initiated/Reviewed/Updated: Yes - My Orders Last 24 Hours: My Active Orders 11/07/19 08:23 Ready for Discharge [RC] PER UNIT ROUTINE - Assessment Assessment:: POD#2 after repeat low transverse . Stable would like to be discharged today. - Plan Plan:: Discharge instructions reviewed.
[2019-11-07] MEDS: Docusate Sodium 100 MG Cap PO SCH (08:40)
[2019-11-07] MEDS: Acetaminophen/oxyCODONE 325-5 MG Tab PO PRN (08:40)
[2019-11-07 09:27] VITALS: BP 124/79; PULSE 86
== END 2019-11-07 11:10 | disposition home or self-care (01) | DRG 540 ==
LOC: MW.OB 06:13
PROVIDERS: ADMIT Obstetrics & Gynecology; ATTEND Obstetrics & Gynecology
PROC: 10D00Z1 Extraction of Products of Conception, Low, Open Approach (ICD-10-PCS; principal; 2019-11-05)
PROC: 30233N1 Transfusion of Nonautologous Red Blood Cells into Peripheral Vein, Percutaneous Approach (ICD-10-PCS; 2019-11-05)
DX: O34.211 Maternal care for low transverse scar from previous cesarean delivery (principal); O99.02 Anemia complicating childbirth; D64.9 Anemia, unspecified; Z3A.38 38 weeks gestation of pregnancy; Z37.0 Single live birth; R00.0 Tachycardia, unspecified
CPT/HCPCS: 01961; 36415; 59025; 82803; 85014; 85018; 85027; 86593; 86850; 86900; 86901; A9270-GY; J0690; J1885; J2270; J2370; J2405; J2590; J7120